=== PATIENT | male | born 1985 | race African-American/Black ===

== ENCOUNTER 2016-10-16 19:41 | Emergency (ER) | payer OTHER ==
[2016-10-16 19:47] VITALS: BP 142/76
[2016-10-16] MEDS ORDERED: IBUPROFEN 800 MG TABLET PO ONE (20:18)
[2016-10-16] MEDS ORDERED: LIDOCAINE 2% VISCOUS SOLN 20 ML UDCUP PO ONE (20:18)
[2016-10-16] MEDS ORDERED: PENICILLIN G BENZATHINE 1.2 MILLION UNIT/2 ML DISP.SYRIN IM ONE (20:18)
--- NOTE | 2016-10-16 20:20 | ER Document Report ---
HPI - HPI Patient complains to provider of: sore throat Onset: Yesterday Onset/Duration: Gradual Quality of pain: Achy Pain Level: 1 Context: Presents complaining of sore throat and recent strep pharyngitis exposure. Patient denies any fever Associated Symptoms: Sore throat. denies: Fever Exacerbated by: Denies Relieved by: Denies Similar symptoms previously: Yes Recently seen / treated by doctor: No - ROS ROS below otherwise negative: Yes Systems Reviewed and Negative: Yes All other systems reviewed and negative - CONSTITUTIONAL Constitutional: DENIES: Fever - EENT EENT: REPORTS: Sore Throat - CARDIOVASCULAR Cardiovascular: DENIES: Chest pain - GASTROINTESTINAL Gastrointestinal: DENIES: Nausea, Patient vomiting - REPRODUCTIVE Reproductive: DENIES: : - DERM Skin Color: Normal Past Medical History - General Information source: Patient - Social History Smoking Status: Never Smoker Chew tobacco use (# tins/day): No Frequency of alcohol use: None Drug Abuse: None Occupation: none Family History: Reviewed & Not Pertinent Patient has suicidal ideation: No Patient has homicidal ideation: No - Medical History Medical History: Negative Renal/ Medical History: Denies: Hx Peritoneal Dialysis Surgical Hx: Negative - Immunizations Hx Diphtheria, Pertussis, Tetanus Vaccination: Yes Vertical Provider Document - CONSTITUTIONAL Agree With Documented VS: Yes Exam Limitations: No Limitations General Appearance: WD/WN, No Apparent Distress - INFECTION CONTROL TRAVEL OUTSIDE OF THE [place] IN LAST 30 DAYS: No - HEENT HEENT: Atraumatic, Normocephalic, Pharyngeal Tenderness, Pharyngeal Erythema. negative: Pharyngeal Exudate - NECK Neck: Normal Inspection, Supple - RESPIRATORY Respiratory: Breath Sounds Normal, No Respiratory Distress, Chest Non-Tender O2 Sat by Pulse Oximetry: 95 - CARDIOVASCULAR Cardiovascular: Regular Rate, Regular Rhythm, No Murmur - BACK Back: Normal Inspection - MUSCULOSKELETAL/EXTREMETIES Musculoskeletal/Extremeties: MAEW - NEURO Level of Consciousness: Awake, Alert, Appropriate Motor/Sensory: No Motor Deficit - DERM Integumentary: Warm, Dry, No Rash Course - Re-evaluation Re-evalutation: 10/16/16 20:20 The patient has been informed that they may have pre-hypertension or hypertension based on a blood pressure reading in the emergency department. I recommend that patient call the primary care provider listed on their discharge instructions or a physician of their choice by this week to arrange follow-up for further evaluation of possible pre-hypertension her hypertension. - Vital Signs Vital signs: Temp Pulse Resp BP Pulse Ox 98.4 F 107 H 16 142/76 H 95 10/16/16 19:46 10/16/16 19:46 10/16/16 19:46 10/16/16 19:46 10/16/16 19:46 Discharge - Discharge Clinical Impression: Sore throat, Elevated blood pressure reading, Strep throat exposure Condition: Stable Disposition: HOME, SELF-CARE Instructions: Sore Throat ([facility]), Strep Throat ([facility]), Antibiotic Shot ([facility]) Additional Instructions: Return immediately for any new or worsening symptoms Followup with your primary care provider, call tomorrow to make a followup appointment Prescriptions: Naproxen [Naprosyn 250 Nmg Tablet] 1 tab PO BID #14 tablet Forms: Elevated Blood Pressure Referrals: [facility] [Provider Group] - Follow up as needed
== END 2016-10-16 20:56 | disposition home or self-care (01) ==
LOC: ER 19:41
DX: J02.9 Acute pharyngitis, unspecified (principal); Z20.818 Contact with and (suspected) exposure to other bacterial communicable diseases; R03.0 Elevated blood-pressure reading, without diagnosis of hypertension
CPT/HCPCS: 99282; 96372; J3490; J0561

== ENCOUNTER 2017-11-28 01:02 | Inpatient (IN) | payer OTHER ==
[2017-11-28] MEDS ORDERED: LORAZEPAM 1 MG TABLET PO ONE (01:32)
[2017-11-28] MEDS ORDERED: HALOPERIDOL 5 MG TABLET PO ONE (01:32)
--- NOTE | 2017-11-28 02:22 | ER Document Report ---
ED General - General Chief Complaint: Psych Problem Stated Complaint: PSYCH EVAL Time Seen by Provider: 11/28/17 01:16 Notes: Patient is a 32-year-old male who presents with his girlfriend and children. Patient has been hallucinating. Patient apparently was at the house and thought someone broke in and said that someone broke and starts preparing the house and put a dog's head on the wall. He has picked from his phone was just shows a wall with a black box on the wall. I asked with him by out saw this and he said that they did a pointed at his family. The kids and the girlfriend all shook her head no and said that they did not see this. Girlfriend says that the patient for last 5 days has not been sleeping. He has been up all night. He has been hallucinating and talking to people who are not there. He has been paranoid and thinks people are out to get him. He does have history of PTSD. He has had no recent changes in his medications for PTSD. He denies any other medical problems. He denies drug use. He denies headache. He denies any focal weakness or numbness into his extremities. TRAVEL OUTSIDE OF THE [place] IN LAST 30 DAYS: No - Related Data Allergies/Adverse Reactions: No Known Allergies Allergy (Verified 01/09/14 09:47) Past Medical History - Social History Smoking Status: Unknown if Ever Smoked Frequency of alcohol use: None Drug Abuse: None Family History: Reviewed & Not Pertinent Patient has suicidal ideation: No Patient has homicidal ideation: No Renal/ Medical History: Denies: Hx Peritoneal Dialysis - Immunizations Hx Diphtheria, Pertussis, Tetanus Vaccination: Yes Review of Systems - Review of Systems Notes: My Normal Review Basic REVIEW OF SYSTEMS: CONSTITUTIONAL : Denies fever, chills, or sweats. Denies recent illness. EENT: Denies eye, ear, throat, or mouth pain or symptoms. Denies nasal or sinus congestion. CARDIOVASCULAR: Denies chest pain. RESPIRATORY: Denies cough, cold, or chest congestion. Denies shortness of breath, difficulty breathing, or wheezing. GASTROINTESTINAL: Denies abdominal pain. Denies nausea, vomiting, or diarrhea. Denies constipation. Last BM: MUSCULOSKELETAL: Denies neck or back pain or joint pain or swelling. SKIN: Denies rash or skin lesions. NEUROLOGICAL: Been acting agitated and hallucinating. Denies headache. Denies weakness or paralysis or loss of use of either side. Denies problems with gait or speech. Denies sensory or motor loss. PSYCHIATRIC: Has been having hallucinations and very paranoid at home. ALL OTHER SYSTEMS REVIEWED AND NEGATIVE. Physical Exam - Notes Notes: General Appearance: Patient is tremulous and shaking. He looks very anxious and paranoid during exam. He does answer questions appropriately. Vitals: reviewed, See vital signs table. Head: no swelling or tenderness to the head Eyes: PERRL, EOMI, Conjuctiva clear Mouth: No decreasd moisture Throat: No tonsillar inflammation, No airway obstruction, No lymphadenopathy Neck: Supple, no neck tenderness, No thyromegaly Lungs: No wheezing, No rales, No rhonci, No accessory muscle use, good air exchange bilaterally. Heart: Tachycardic rate, Regular rythm, No murmur, no rub Abdomen: Normal BS, soft, No rigidity, No abdominal tenderness, No guarding, no rebound, no abdominal masses, no organomegaly Extremities: strength 5/5 in all extremities, good pulses in all extremities, no swelling or tenderness in the extremities, no edema. Skin: warm, dry, appropriate color, no rash Neuro: speech clear, oriented x 3, paranoid affect, responds appropriately to questions. Nerves II through XII are intact. Good strength in all extremities. He has normal gait. Catcher: Patient is very paranoid. He does answer my and truthfully thinks that people are out to get him. He really does think that someone was running through his house with a dog's head and put on the Shaylee spray painting the house even though has no evidence of this. He also thinks other people in the house witnessed however the other people that were there said they did not seem to such things. Course - Re-evaluation Re-evalutation: 11/28/17 02:21 Patient's EKG does show some T wave inversion with some palpable ST segment depression in inferior and lateral leads. Patient does not have any chest pain is very agitated. I think this is more rate related. I definitely will not call this an acute STEMI at this time. I will order troponin just to make sure there is no evidence of cardiac ischemia. No old EKG available for comparison. 11/28/17 03:30 Becoming more agitated. He is hallucinating think there is people in the room with him even though there are not. He is very scared and is requesting different rooms and to be switched out of his room because he thinks they are dangerous people in his room with him even though there is nobody in the room. We will give him a dose of IM Haldol to see if this helps calm down. 11/28/17 03:57 Patient appears to be in acute renal failure. I suspect this most likely is related to possible rhabdomyolysis due to him not staying still and up on his feet and not sleeping for several days. I have ordered IV fluids. I will place him on monitoring and evaluation advisor. I have ordered a CPK. 11/28/17 05:34 Patient is becoming more more agitated. I have ordered more Ativan but he has ripped his IV refuses to keep any monitoring on him. We will have to restrain him. We will then place an IV and start giving him Ativan to help try to calm him down. When I leave the room patient's heart rate comes down to low 100s. Went into the room again his heart rate goes right up to 140 as he is very paranoid at this time. I did speak with the hospitalist, Dr. Hunter, and talked about admission been patient is acute renal failure in conjunction with his ongoing agitation and esteban. I suspect his acute renal failure because he has been now up for 5 days. His CPK is pending by 1 be surprised if he is in rhabdomyolysis. I have ordered IV fluids. I will continue to give him benzodiazepines until he is sedate and calm. Dr. Hunter agrees to evaluate the patient for admission. I have filled out IVC paperwork. 11/28/17 06:13 Dictation of this chart was performed using voice recognition software; therefore, there may be some unintended grammatical errors. - Laboratory Result Diagrams: 11/28/17 02:55 11/28/17 02:55 Laboratory results interpreted by me: 11/28/17 11/28/17 11/28/17 02:04 02:55 02:55 WBC 13.4 H RBC 6.04 H Hgb 17.1 H RDW 17.1 H Plt Count 102 L Seg Neutrophils % 84.0 H Lymphocytes % 8.8 L Absolute Neutrophils 11.3 H Chloride 93 L Anion Gap 26 H BUN 29 H Creatinine 3.67 H Est GFR ( Amer) 23 L Est GFR (Non-Af Amer) 19 L Calcium 11.1 H Total Bilirubin 1.7 H Direct Bilirubin 0.6 H AST 191 H ALT 100 H Creatine Kinase Total Protein 10.1 H Albumin 5.5 H Urine Protein >=500 H Urine Ketones TRACE H Urine Blood SMALL H Urine Urobilinogen 4.0 H Salicylates < 1.0 L Acetaminophen < 10 L 11/28/17 02:55 WBC RBC Hgb RDW Plt Count Seg Neutrophils % Lymphocytes % Absolute Neutrophils Chloride Anion Gap BUN Creatinine Est GFR ( Amer) Est GFR (Non-Af Amer) Calcium Total Bilirubin Direct Bilirubin AST ALT Creatine Kinase 9258 H Total Protein Albumin Urine Protein Urine Ketones Urine Blood Urine Urobilinogen Salicylates Acetaminophen Discharge - Discharge Clinical Impression: Agitation, Hallucinations Acute renal failure Qualifiers: Acute renal failure type: unspecified Qualified Code(s): N17.9 - Acute kidney failure, unspecified Condition: Stable Disposition: ADMITTED INPATIENT Admitting Provider: Hospitalist Unit Admitted: ICU
[2017-11-28 02:23] LABS: APPEARANCE,URINE CLOUDY; BILIRUBIN,URINE NEGATIVE (NEGATIVE); GLUCOSE, URINE NEGATIVE (NEGATIVE); KETONES,URINE TRACE mg/dL (NEGATIVE); LEUKOCYTE ESTERASE,URINE NEGATIVE (NEGATIVE); NITRITE,URINE NEGATIVE (NEGATIVE); PROTEIN,URINE >=500 mg/dL (NEGATIVE); URINE SPECIFIC GRAVITY 1.022
[2017-11-28 02:24] LABS: COLOR,URINE DARK YELLOW
[2017-11-28 02:34] LABS: URINE AMPHETAMINES SCREEN NEGATIVE; URINE BARBITURATES SCREEN NEGATIVE; URINE BENZODIAZEPINES SCREEN NEGATIVE; URINE COCAINE SCREEN NEGATIVE; URINE MARIJUANA (THC) SCREEN NEGATIVE; URINE METHADONE SCREEN NEGATIVE; URINE PHENCYCLIDINE SCREEN NEGATIVE
[2017-11-28 03:05] LABS: ABSOLUTE LYMPHOCYTES (AUTO) 1.2 10^3/uL (0.5-4.7); ABSOLUTE MONOCYTES (AUTO) 0.9 10^3/uL (0.1-1.4); ABSOLUTE NEUT (AUTO) 11.3 10^3/uL (1.7-8.2); BASOPHILS % (AUTO) 0.2 % (0-2); HEMATOCRIT 50.9 % (37.9-51.0); HEMOGLOBIN 17.1 g/dL (13.5-17.0); LYMPHOCYTES % (AUTO) 8.8 % (13-45); MEAN CORPUSCULAR HEMOGLOBIN 28.4 pg (27.0-33.4); MEAN CORPUSCULAR HGB CONC 33.6 g/dL (32.0-36.0); MEAN CORPUSCULAR VOLUME 84 fl (80-97); PLATELET COUNT 102 10^3/uL (150-450); RED BLOOD COUNT 6.04 10^6/uL (4.35-5.55); RED CELL DISTRIBUTION WIDTH 17.1 % (11.5-14.0); TOTAL CELLS COUNTED % (AUTO) 100 %; WHITE BLOOD COUNT 13.4 10^3/uL (4.0-10.5)
[2017-11-28 03:27] LABS: BLOOD UREA NITROGEN 29 mg/dL (7-20); CALCIUM 11.1 mg/dL (8.4-10.2); GLUCOSE 91 mg/dL (75-110)
[2017-11-28 03:28] LABS: ALANINE AMINOTRANSFERASE 100 U/L (21-72); ALBUMIN 5.5 g/dL (3.5-5.0); ALKALINE PHOSPHATASE 79 U/L (38-126); ASPARTATE AMINO TRANSFERASE 191 U/L (17-59); BILIRUBIN,DIRECT 0.6 mg/dL (0.0-0.4); BILIRUBIN,TOTAL 1.7 mg/dL (0.2-1.3); POTASSIUM 4.1 mmol/L (3.6-5.0); TOTAL PROTEIN 10.1 g/dL (6.3-8.2)
[2017-11-28] MEDS ORDERED: HALOPERIDOL LACTATE INJ 5 MG/1 ML VIAL IM ONE (03:29)
[2017-11-28 03:32] LABS: CARBON DIOXIDE 25 mmol/L (22-30); CHLORIDE 93 mmol/L (98-107); SODIUM 144.4 mmol/L (137-145)
[2017-11-28 03:33] LABS: ACETAMINOPHEN < 10 ug/mL (10-30); ALCOHOL < 10 mg/dL (NONE DETECTED); SALICYLATE < 1.0 mg/dL (2.0-20.0)
[2017-11-28 03:34] LABS: ANION GAP 26 (5-19)
[2017-11-28] MEDS: NORMAL SALINE 1000 ML 1,000 ML IV PRN ×4 (04:30→22:59)
[2017-11-28] MEDS ORDERED: LORAZEPAM INJ 2 MG/1 ML VIAL IV ONE (05:17)
--- NOTE | 2017-11-28 06:14 | EKG REPORT ---
SEVERITY:- ABNORMAL ECG - SINUS TACHYCARDIA CONSIDER LEFT VENTRICULAR HYPERTROPHY ST ELEVATION, PROBABLE ANTERIOR INJURY ABNORMAL T, CONSIDER ISCHEMIA, INFERIOR LEADS BORDERLINE PROLONGED QT INTERVAL : Confirmed by: Eris Cruz MD 28-Nov-2017 06:13:52
--- NOTE | 2017-11-28 06:55 | PDOC H&P ---
History of Present Illness Admission Date/PCP: 11/28/17 05:53 JAEL DOAN MD Patient complains of: Hallucinations History of Present Illness: CRYSTAL REYES is a 32 year old male with a past medical history of PTSD who presents with 5 days of decompensation. His history is provided by his family with whom he lives reporting insomnia, esteban, paranoia, hallucinations. Patient is unable to provide history whatsoever and requires sedation by emergency room provider of 10 mg of Haldol IV followed by 4 mg of Ativan IV. Patient remains awake, agitated and confused and subsequently IVC and placed in four-point restraints. No evidence for photophobia, neck stiffness or fever. Workup reveals acute renal failure and rhabdomyolysis. He is referred to the hospitalist for admission. Past Medical History Psychiatric Medical History: Reports: Post Traumatic Stress Disorder Social History Information Source: Emergency Med Personnel, [facility] Records Lives with: Family Smoking Status: Unknown if Ever Smoked Frequency of Alcohol Use: None Drugs: None - Advance Directive Resuscitation Status: Full Code Family History Family History: Other - Unobtainable Parental Family History Reviewed: No Children Family History Reviewed: No Sibling(s) Family History Reviewed.: No Medication/Allergy Home Medications: Clotrimazole [Ringworm] 1 applic TP DAILY #1 tub 01/09/14 Fluconazole [Diflucan 100 Mg Tablet] 100 mg PO DAILY #3 tablet 01/09/14 Naproxen [Naprosyn 250 Nmg Tablet] 1 tab PO BID #14 tablet 10/16/16 Allergies/Adverse Reactions: No Known Allergies Allergy (Verified 01/09/14 09:47) Review of Systems ROS unobtainable: Due to mental status Physical Exam General appearance: PRESENT: disheveled, severe distress, well-developed, well- nourished. ABSENT: cooperative Head exam: PRESENT: atraumatic, normocephalic Eye exam: PRESENT: conjunctiva pink, EOMI, PERRLA. ABSENT: scleral icterus Ear exam: PRESENT: normal external ear exam Mouth exam: PRESENT: moist, tongue midline Neck exam: ABSENT: carotid bruit, JVD, lymphadenopathy, thyromegaly Respiratory exam: PRESENT: clear to auscultation aysha. ABSENT: rales, rhonchi, wheezes Cardiovascular exam: PRESENT: tachycardia. ABSENT: diastolic murmur, rubs, systolic murmur Pulses: PRESENT: normal dorsalis pedis pul Vascular exam: PRESENT: normal capillary refill GI/Abdominal exam: PRESENT: normal bowel sounds, soft. ABSENT: distended, guarding, mass, organolmegaly, rebound, tenderness Rectal exam: PRESENT: deferred Extremities exam: PRESENT: full ROM. ABSENT: calf tenderness, clubbing, pedal edema Neurological exam: PRESENT: alert, altered, awake, oriented to person, CN II- XII grossly intact. ABSENT: motor sensory deficit Psychiatric exam: PRESENT: agitated, manic, unusual affect. ABSENT: homicidal ideation, suicidal ideation Focused psych exam: PRESENT: delusional, internal stimuli, paranoid, psychomotor agitation, restlessness. ABSENT: catatonic, euphoric, flight of ideas Skin exam: PRESENT: dry, intact, warm. ABSENT: cyanosis, rash Assessment & Plan - Diagnosis (1) Acute renal failure Qualifiers: Acute renal failure type: unspecified Qualified Code(s): N17.9 - Acute kidney failure, unspecified Is this a current diagnosis for this admission?: Yes Plan: Unknown chronicity though likely acute secondary to rhabdomyolysis, avoid nephrotoxic meds and doses, IV fluid challenge, follow-up chemistry and total CK (2) Hallucinations Is this a current diagnosis for this admission?: Yes Plan: Unclear history possible undiagnosed schizophrenia versus depression with psychotic break, versus substance abuse with synthetic cannabinoid. Sedation and supportive care. Given paranoia and inability to maintain IV he is placed in four-point restraints. Follow-up psychiatry consult (3) Rhabdomyolysis Qualifiers: Rhabdomyolysis type: non-traumatic Qualified Code(s): M62.82 - Rhabdomyolysis Is this a current diagnosis for this admission?: Yes Plan: Likely secondary to esteban with hyperkinetic state versus neuroleptic malignant syndrome, IV fluid challenge, follow-up chemistry and total CK with supportive care. - Time Time Spent: 50 to 70 Minutes - Inpatient Certification Medical Necessity: Need Close Monitoring Due to Risk of Patient Decompensation
--- NOTE | 2017-11-28 12:18 | PSYCHOLOGICAL NOTE ---
Psych Note - Psych Note Psych Note: Reason for Consult: Psychosis Girlfriend states that pt has been acting differently. Is anxious and paranoid and not himself. Initially would not come in, but was coaxed in by family and security. Was cooperative but appeared anxious and was very sweaty. Patient was observed struggling to stay awake. Patient was unable to engage in evaluation as he keeps falling asleep and is unable to articulate full words. Patient is currently in 4 point restraints for his safety. Medication recommendations per [facility]'s contracted psychiatrist Dr. Laurie LEAL are as follows: 1. Thorazine 50 mg every 6 hours 2. Zyprexa 5 mg 3 times daily 3. Cogentin 1 mg twice daily 4. Clonidine patch 0.1 mg every 24 hours Impression\plan: Patient is recommended for 24-hour IVC petition. Patient is currently presenting in psychosis possibly due to no sleep for 5 days. Patient will be reevaluated. Medication recommendations have been provided. Dr. Joyner was consulted and the care management of this patient.
[2017-11-28] MEDS ORDERED: PROMETHAZINE HCL INJ 25 MG/1 ML VIAL IV PRN (13:55)
[2017-11-28] MEDS ORDERED: LORAZEPAM INJ 2 MG/1 ML VIAL IV PRN (14:00)
[2017-11-28] MEDS ORDERED: HALOPERIDOL LACTATE INJ 5 MG/1 ML VIAL IV PRN (14:01)
--- NOTE | 2017-11-28 14:59 | Progress Note ---
Provider Note Provider Note: This is 32 years old black male patient with past medical history of PTSD admitted with a diagnosis of acute psychosis, mild rhabdomyolysis and acute kidney failure. Since patient's agitated and combative he is under four-point restraints. I seen and accepted the patient.
[2017-11-28] MEDS: METOPROLOL SUCCINATE 50 MG TAB.SR.24H PO SCH (18:02)
[2017-11-29 05:25] LABS: ABSOLUTE EOSINOPHILS # (AUTO) 0.1 10^3/uL (0.0-0.6); ABSOLUTE LYMPHOCYTES (AUTO) 1.1 10^3/uL (0.5-4.7); ABSOLUTE MONOCYTES (AUTO) 0.6 10^3/uL (0.1-1.4); ABSOLUTE NEUT (AUTO) 3.2 10^3/uL (1.7-8.2); BASOPHILS % (AUTO) 0.4 % (0-2); EOSINOPHILS % (AUTO) 1.4 % (0-6); HEMATOCRIT 40.9 % (37.9-51.0); MEAN CORPUSCULAR HEMOGLOBIN 28.8 pg (27.0-33.4); MEAN CORPUSCULAR HGB CONC 34.5 g/dL (32.0-36.0); MEAN CORPUSCULAR VOLUME 84 fl (80-97); MONOCYTES % (AUTO) 11.1 % (3-13); RED CELL DISTRIBUTION WIDTH 16.4 % (11.5-14.0); SEGMENTED NEUTROPHILS % (AUTO) 64.1 % (42-78); TOTAL CELLS COUNTED % (AUTO) 100 %
[2017-11-29 05:44] LABS: ANION GAP 13 (5-19); BLOOD UREA NITROGEN 20 mg/dL (7-20); CALCIUM 8.7 mg/dL (8.4-10.2); CARBON DIOXIDE 23 mmol/L (22-30); CHLORIDE 105 mmol/L (98-107); GLUCOSE 96 mg/dL (75-110); POTASSIUM 3.6 mmol/L (3.6-5.0); SODIUM 140.8 mmol/L (137-145)
[2017-11-29] MEDS: NORMAL SALINE 1000 ML 1,000 ML IV PRN ×3 (05:48→20:54)
[2017-11-29 06:40] LABS: HEMOGLOBIN 14.1 g/dL (13.5-17.0); PLATELET COUNT 82 10^3/uL (150-450)
[2017-11-29] MEDS: METOPROLOL SUCCINATE 50 MG TAB.SR.24H PO SCH (10:49)
[2017-11-29] MEDS: ENOXAPARIN SODIUM INJ 40 MG/0.4 ML DISP.SYRIN SUBCUT SCH (10:53)
[2017-11-29] MEDS ORDERED: AMLODIPINE BESYLATE 5 MG TABLET PO SCH (11:45)
--- NOTE | 2017-11-29 17:53 | PDOC PROGRESS REPORT ---
Subjective Progress Note for:: 11/29/17 Subjective:: The patient is sleeping soundly. He is not awakened. Reason For Visit: ACUTE PSYCHOSIS, ACUTE RENAL FAILURE, RHABDOMYOLYS Physical Exam Vital Signs: Temp Pulse Resp BP Pulse Ox 99.1 F 80 16 151/100 H 98 11/29/17 11:12 11/29/17 14:00 11/29/17 11:12 11/29/17 11:12 11/29/17 11:12 Intake & Output 11/28/17 11/29/17 11/30/17 06:59 06:59 06:59 Intake Total 1000 3222 1450 Balance 1000 3222 1450 Weight 105.8 kg General appearance: PRESENT: no acute distress, other - Sleeping. Sitter present. Head exam: PRESENT: atraumatic, normocephalic Respiratory exam: PRESENT: other - No increased work of breathing. No wheezes, rales, or rhonchi. No tactile fremitus. Cardiovascular exam: PRESENT: RRR. ABSENT: gallop, rubs, systolic murmur Pulses: PRESENT: normal femoral pulses, normal dorsalis pedis pul GI/Abdominal exam: PRESENT: normal bowel sounds, soft. ABSENT: distended, hernia, mass, organolmegaly Rectal exam: PRESENT: deferred Musculoskeletal exam: PRESENT: normal inspection. ABSENT: deformity, dislocation Neurological exam: PRESENT: other - The patient is sleeping soundly after being very arigated and combative. He is not awakened. Skin exam: PRESENT: dry, intact, warm Results Laboratory Results: 11/29/17 04:49 11/29/17 04:49 11/29/17 11/29/17 04:49 04:49 WBC 5.0 RBC 4.90 Hgb 14.1 D Hct 40.9 MCV 84 MCH 28.8 MCHC 34.5 RDW 16.4 H Plt Count 82 L Seg Neutrophils % 64.1 Lymphocytes % 23.0 Monocytes % 11.1 Eosinophils % 1.4 Basophils % 0.4 Absolute Neutrophils 3.2 Absolute Lymphocytes 1.1 Absolute Monocytes 0.6 Absolute Eosinophils 0.1 Absolute Basophils 0.0 Sodium 140.8 Potassium 3.6 Chloride 105 Carbon Dioxide 23 Anion Gap 13 BUN 20 Creatinine 1.18 Est GFR ( Amer) > 60 Est GFR (Non-Af Amer) > 60 Glucose 96 Calcium 8.7 Assessment & Plan - Time Time Spent with patient: 25-34 minutes Medications reviewed and adjusted accordingly: Yes
--- NOTE | 2017-11-29 18:48 | PSYCHOLOGICAL NOTE ---
Psych Note - Psych Note Psych Note: Reason for Consult: 1st floor evaluation but seen previously in ED, no sleep x5 days, Psychosis Contact Permissions: Friend Zakiya present at bedside, patient gave verbal consent to speak freely in front of her Patient is a 32 year old male who presented to the ED yesterday for psychosis after no sleep for 5 days. Today patient was sitting upright in his bed. He stated he felt good today and had slept since there is nothing else to do. He stated I was tricked by a friend which is how I ended up here. He elaborated to say he didnt think things were serious enough to come to the ED. He denied any previous episodes of psychosis. He identified [facility]. He identified they have diagnosed him with PTSD. He stated when he takes his medications they work well but he sometimes forgets because he gets busy working. He denied SI/HI. He stated his BP runs high, his medication works well, and it was likely more elevated today after he was informed he would be staying for medical reasons. Patient was alert and oriented to person, place, time and situation. Mood was anxious and irritable with congruent affect (surrounding having to stay at the hospital for BP and fluids due to medical concerns). He denied current SI/HI. He did not appear to be responding to internal stimuli as evidenced by fair eye contact, answering questions appropriately when addressed and carrying on dialogue conversation. Thought processes were linear and organized. Conversational speech was within normal limits for rate, tone and prosody. Intellectual abilities are estimated to be average. Insight, judgment and impulse control were fair given he was no longer in active psychosis. Patient gave verbal consent to speak freely in front of friend, Zakiya. She stated she has known patient for 13+ years and resides close by. She stated he has never had psychosis/hallucinations/delusions before. She stated he does often go days without sleep. She also confirmed his BP runs high usually. She stated he is much better today. Attending nurse reported there are concerns for Rhabdo and patient was explained this meant he was at high risk for stroke. She stated other concerns related to this was the poor sleep and patient always being on the go. Diagnosis: No sleep x5 days Psychosis (likely due to sleep deprivation) 309.81 (F43.10) PTSD by History Medication recommendations made by the psychiatric medical provider, Dr. Laurie MD, from 11/28/17: These were just to assist patient through what was likely sleep deprivation psychosis so do not have to start them since patient has cleared Impression/Plan: Patient is cleared from acute psychiatric services. He had only been on a 24 hour IVC petition from yesterday (11/28/17) so can just allow it to . He denied SI/HI and there was no observed psychosis today. Patient was able to make fair eye contact, answer questions appropriately when addressed and carry on dialogue conversation. He reported he got some sleep last night. [facility] Behavioral Health team [facility] was to call back today and did not. Will ensure appointments are arranged before patient is discharged. Patient being held medically due to concerns for Rhabdo. Consulted with Dr. Joyner regarding the management and care of patient. Informed attending nurse, Joe, of plan of care.
[2017-11-30] MEDS: NORMAL SALINE 1000 ML 1,000 ML IV PRN ×2 (03:43→10:40)
[2017-11-30 07:17] LABS: ABSOLUTE EOSINOPHILS # (AUTO) 0.1 10^3/uL (0.0-0.6); ABSOLUTE LYMPHOCYTES (AUTO) 1.3 10^3/uL (0.5-4.7); ABSOLUTE MONOCYTES (AUTO) 0.6 10^3/uL (0.1-1.4); ABSOLUTE NEUT (AUTO) 3.1 10^3/uL (1.7-8.2); BASOPHILS % (AUTO) 0.6 % (0-2); EOSINOPHILS % (AUTO) 1.5 % (0-6); HEMATOCRIT 41.2 % (37.9-51.0); HEMOGLOBIN 13.9 g/dL (13.5-17.0); LYMPHOCYTES % (AUTO) 25.4 % (13-45); MEAN CORPUSCULAR HEMOGLOBIN 28.9 pg (27.0-33.4); MEAN CORPUSCULAR HGB CONC 33.9 g/dL (32.0-36.0); MEAN CORPUSCULAR VOLUME 85 fl (80-97); MONOCYTES % (AUTO) 11.1 % (3-13); RED BLOOD COUNT 4.83 10^6/uL (4.35-5.55); RED CELL DISTRIBUTION WIDTH 16.4 % (11.5-14.0); SEGMENTED NEUTROPHILS % (AUTO) 61.4 % (42-78); TOTAL CELLS COUNTED % (AUTO) 100 %; WHITE BLOOD COUNT 5.1 10^3/uL (4.0-10.5)
[2017-11-30 07:29] LABS: ANION GAP 11 (5-19); BLOOD UREA NITROGEN 11 mg/dL (7-20); CARBON DIOXIDE 24 mmol/L (22-30); CHLORIDE 107 mmol/L (98-107); GLUCOSE 81 mg/dL (75-110); POTASSIUM 3.8 mmol/L (3.6-5.0)
[2017-11-30 08:17] LABS: PLATELET COUNT 93 10^3/uL (150-450)
[2017-11-30 08:18] LABS: ANISOCYTOSIS 1+; HYPOCHROMASIA 2+; PLATELET COMMENT DECREASED; ROULEAUX SLIGHT; TARGET CELLS SLIGHT
[2017-11-30 08:30] VITALS: BP 168/112
[2017-11-30] MEDS ORDERED: AMLODIPINE BESYLATE 5 MG TABLET PO SCH (09:00)
[2017-11-30] MEDS ORDERED: METOPROLOL SUCCINATE 50 MG TAB.SR.24H PO SCH (09:00)
[2017-11-30] MEDS: ENOXAPARIN SODIUM INJ 40 MG/0.4 ML DISP.SYRIN SUBCUT SCH (09:09)
--- NOTE | 2017-11-30 14:38 | PSYCHOLOGICAL NOTE ---
Psych Note - Psych Note Psych Note: Reason for Consult: Psychosis Contact Permissions: Friend Zakiya present at bedside, patient gave verbal consent to speak freely in front of her Upon arrive, Girlfriend states that pt has been acting differently. Is anxious and paranoid and not himself. Initially would not come in, but was coaxed in by family and security. Was cooperative but appeared anxious and was very sweaty. Clinician conducted checking with patient Patient is alert and orientated to person, place, time and circumstance. Mood is overall euthymic however does have slight irritability with appropriately congruent affect. Patient is able to discuss conversations and organized and linear manner. He reports that he does not have an interest in staying in the hospital and requests to leave. Patient disclosed that he does have diagnosis of PTSD and [facility] He states that he had not been receiving any sleep because of increased nightmares. Patient is not demonstrating any behavior congruent with responding to internal stimuli. Patient denies suicidal homicidal ideation. Diagnosis: 309.81 (F43.10) Posttraumatic Stress Disorder per history reported by patient Medication recommendations made by the psychiatric medical provider, Dr. Laurie MD, are as follows: Recommendation provided on 11/28/2017 were just to assist patient through what was likely sleep deprivation psychosis so do not have to start them since patient has cleared. No new medication recommendations. Impression/Plan: Patient is cleared from acute psychiatric services. He had only been on a 24 hour IVC petition from 11/28/17 that is now . He denied SI/HI and there was no observed psychosis today. Patient was able to make fair eye contact, answer questions appropriately when addressed and carry on dialogue conversation. Consulted with Dr. Joyner regarding the management and care of patient. Informed attending nurse, Joe, of plan of care.
--- NOTE | 2017-11-30 16:53 | PDOC DISCHARGE SUMMARY ---
General - Admit/Disc Date/PCP Admission Date/Primary Care Provider: 11/28/17 05:53 JAEL DOAN MD Discharge Date: 11/30/17 - Discharge Diagnosis (1) PTSD (post-traumatic stress disorder) Is this a current diagnosis for this admission?: Yes Summary: Stable. Baseline. (2) Problems related to lack of adequate sleep Is this a current diagnosis for this admission?: Yes Summary: Resolved with sleep. (3) Acute renal failure Is this a current diagnosis for this admission?: Yes Summary: Resolved. (4) Hallucinations Is this a current diagnosis for this admission?: Yes Summary: Resolved and related to lack of sleep. (5) Rhabdomyolysis Is this a current diagnosis for this admission?: Yes Summary: Resolved. - Additional Information Resuscitation Status: Full Code Home Medications: Cholecalciferol (Vitamin D3) [Vitamin D3 1000 Unit Tablet] 1,000 unit PO DAILY 11/28/17 Ibuprofen [Motrin 800 mg Tablet] 800 mg PO Q8HP PRN 11/28/17 Metoprolol Succinate [Toprol Xl] 50 mg PO DAILY 11/28/17 History of Present Illness History of Present Illness: CRYSTAL REYES is a 32 year old male with a past medical history of PTSD who presents with 5 days of decompensation. His history is provided by his family with whom he lives reporting insomnia, esteban, paranoia, hallucinations. Patient is unable to provide history whatsoever and requires sedation by emergency room provider of 10 mg of Haldol IV followed by 4 mg of Ativan IV. Patient remains awake, agitated and confused and subsequently IVC and placed in four-point restraints. No evidence for photophobia, neck stiffness or fever. Workup reveals acute renal failure and rhabdomyolysis. He is referred to the hospitalist for admission. Hospital Course Hospital Course: The patient was admitted and placed on a psychiatric hold. He had a sitter. He was managed with antipsychotics and anxiolytics. He mostly slept for the initial 24 hours. Psychiatry was consulted and determined that the behaviors and actions that resulted in the patient's admission and committment were due to PTSD and sleep deprivation. The hold and this morning the patient left AMA before I was able to see him. Physical Exam Vital Signs: Temp Pulse Resp BP Pulse Ox 99.1 F 87 15 168/112 H 100 11/30/17 07:51 11/30/17 07:51 11/30/17 07:51 11/30/17 07:51 11/30/17 07:51 Intake & Output 11/29/17 11/30/17 12/01/17 06:59 06:59 06:59 Intake Total 3222 3708 1000 Balance 3222 3708 1000 Weight 105.8 kg Additional comments: I was unable to see the patient to do a physical exam before he left AMA. Results Laboratory Results: 11/30/17 06:22 11/30/17 06:22 11/30/17 11/30/17 06:22 06:22 WBC 5.1 RBC 4.83 Hgb 13.9 Hct 41.2 MCV 85 MCH 28.9 MCHC 33.9 RDW 16.4 H Plt Count 93 L Seg Neutrophils % 61.4 Lymphocytes % 25.4 Monocytes % 11.1 Eosinophils % 1.5 Basophils % 0.6 Absolute Neutrophils 3.1 Absolute Lymphocytes 1.3 Absolute Monocytes 0.6 Absolute Eosinophils 0.1 Absolute Basophils 0.0 Sodium 142.0 Potassium 3.8 Chloride 107 Carbon Dioxide 24 Anion Gap 11 BUN 11 Creatinine 1.00 Est GFR ( Amer) > 60 Est GFR (Non-Af Amer) > 60 Glucose 81 Calcium 9.0 11/30/17 06:22 Creatine Kinase 4595 H Qualifiers - * PATIENT BEING DISCHARGED WITH ANY OF THE FOLLOWING DIAGNOSIS: No
== END 2017-11-30 11:30 | disposition left against medical advice (07) | DRG 882 ==
LOC: ER 01:02 → EH 05:53 → 3W 13:58
PROVIDERS: ADMIT Internal Medicine; ATTEND Internal Medicine
DX: F43.11 Post-traumatic stress disorder, acute (principal); M62.82 Rhabdomyolysis; N17.9 Acute kidney failure, unspecified; F51.05 Insomnia due to other mental disorder; R44.1 Visual hallucinations; F12.90 Cannabis use, unspecified, uncomplicated; Z72.820 Sleep deprivation; Z78.1 Physical restraint status
CPT/HCPCS: 36415; 80048; 80053; 80307; 81001; 82550; 84484; 85025; 93005; 93010; 96372; 96374; 99285; J1630; J2060; J7030

== ENCOUNTER → 2019-02-01 | Outpatient (CLI) | payer OTHER ==
--- NOTE | 2019-02-01 12:50 | RADIOLOGY REPORT (SQ) ---
EXAM DESCRIPTION: MRI LUMBAR SPINE WITHOUT COMPLETED DATE/TIME: 02/01/2019 11:21 am REASON FOR STUDY: M54.16 RADICULOPATHY, LUMBAR REGION M54.16 RADICULOPATHY, LUMBAR REGION COMPARISON: None. TECHNIQUE: Sagittal and Axial imaging includes T1, T2, STIR and gradient echo sequences. Coronal T2/ HASTE imaging. LIMITATIONS: None. FINDINGS: VISUALIZED UPPER ABDOMEN: Limited evaluation. No acute or suspicious findings suggested. SEGMENTATION: No transitional anatomy. The lowest well-developed disc space is labeled L5-S1. ALIGNMENT: Anatomic. VERTEBRAE: Intact. BONE MARROW: Normal. No marrow replacement or reactive changes. DISC SIGNAL: Decreased signal intensity at L4-5 and L5-S1. Disc spaces are mildly narrowed at these levels. POSTERIOR ELEMENTS: Generally intact. No pars defect evident. HARDWARE: None in the spine. CORD AND CONUS: Normal in size and signal intensity. Conus at the L1 level. SOFT TISSUES: No aortic aneurysm seen. No bulky retroperitoneal adenopathy or mass. No paraspinal mas s or fluid. L1-L2: No significant spinal stenosis or exit foraminal stenosis. L2-L3: Mild concentric disc bulging with no central canal or foraminal stenosis. L3-L4: No significant spinal stenosis or exit foraminal stenosis. L4-L5: Broad-based disc/osteophyte complex with no central canal or foraminal stenosis. The nerve ro ots are clumped together. L5-S1: Broad-based disc/osteophyte complex circumferential disc bulge. The disc contacts the owen ing nerve roots. Nerve roots are clumped in the middle of the spinal canal. There is no foraminal s tenosis. LOWER THORACIC: Incompletely imaged. No stenosis seen. SACRUM: Visualized upper sacrum intact. OTHER: No other significant findings. IMPRESSION: 1. The appearance of the spinal canal in the lower levels is concerning for arachnoidit is. 2. Disc changes as described. The disc at L4-5 contacts the traversing nerve roots. No foraminal s tenoses are seen. TECHNICAL DOCUMENTATION: JOB ID: [id number]- All Rights Reserved Reading location - IP/workstation name: [email or web address]
== END ==
LOC: RAD 10:40
PROVIDERS: ATTEND Physician Assistant
DX: M54.16 Radiculopathy, lumbar region (principal)
CPT/HCPCS: 72148